=== PATIENT | male | born 1950 ===

== ENCOUNTER 2022-12-19 05:30 | Day surgery (SDC) | payer OTHER ==
[~2022-12-19 05:30] MED LIST: ATORVASTATIN CA20 MG PO; BREO ELLIPTA 21 EACH IH; DILTIAZEM 24HR120 M1 PO; PROAIR RESPICL90 MCG IH; PROTONI PO; SINGULAIR10 MG PO; SPIRIVA HANDIH18 MCG IH
== END 2022-12-19 11:30 | disposition home or self-care (01) ==
LOC: CIR.AMB 05:30
PROVIDERS: ATTEND Urology
DX: N47.1 Phimosis (principal); N48.89 Other specified disorders of penis; Z88.0 Allergy status to penicillin; Z20.822 Contact with and (suspected) exposure to COVID-19; E78.5 Hyperlipidemia, unspecified; I10 Essential (primary) hypertension